=== PATIENT | male | born 1985 | race Caucasian/White ===

== ENCOUNTER 2018-07-24 16:04 | Inpatient (IN) | payer OTHER ==
[~2018-07-24] VITALS: Ht 170.2 cm; Wt 95.8 kg
[2018-07-24] MEDS ORDERED: POLYETHYLENE GLYCOL 17 GM PACKET PO PRN (19:30)
[2018-07-24] MEDS ORDERED: ONDANSETRON ODT 4 MG PO PRN (19:30)
[2018-07-24] MEDS ORDERED: ACETAMINOPHEN 325 MG TABLET PO PRN (19:30)
[2018-07-24] MEDS ORDERED: BISACODYL 10 MG SUPP PR PRN (19:30)
[2018-07-24] MEDS ORDERED: PLEASE ENTER ALLERGIES MC SCH (19:30)
[2018-07-24] MEDS: NICOTINE 21 MG/24 HR PATCH.TD24 TD SCH (19:30)
[2018-07-24 19:59] LABS: HCT (SEDRATE) 38.4 % (39.2-51.8)
[2018-07-24] MEDS: PLEASE ENTER HEIGHT AND WEIGHT MC SCH (20:00)
[2018-07-24 20:18] LABS: HIGH-SENSITIVITY CRP > 19.00 mg/dL (0.02-0.30)
[2018-07-24 20:24] LABS: MEAN CORPUSCULAR HGB CONC 34.1 g/dL (33.2-36.2); MEAN CORPUSCULAR VOLUME 87.8 fL (81-97); MEAN PLATELET VOLUME 7.4 fL (7.4-10.4); PLATELET COUNT 487 x10^3/uL (130-400); RED BLOOD COUNT 4.43 x10^6/uL (4.38-5.82); RED CELL DISTRIBUTION WIDTH 12.2 % (9.4-14.8)
[2018-07-24 20:40] LABS: BASOPHILS # (AUTO) 0.07 x10^3/uL (0-0.1); BASOPHILS % (AUTO) 0 % (0-1); EOSINOPHILS # (AUTO) 0.09 x10^3/uL (0-0.4); EOSINOPHILS % (AUTO) 1 % (1-7); LYMPHOCYTES # (AUTO) 2.72 x10^3/uL (1-3.4); LYMPHOCYTES % (AUTO) 17 % (22-44); MD SCAN; MONOCYTES % (AUTO) 9 % (2-9); NEUTROPHILS # (AUTO) 11.94 x10^3/uL (1.8-6.8); NEUTROPHILS % (AUTO) 73 % (42-75)
[2018-07-24] MEDS: OXYcodone/APAP 5/325MG TABLET PO PRN (20:46)
[2018-07-24] MEDS: KETOROLAC 30 MG/1 ML IVPush SCH (21:00)
[2018-07-24] MEDS: SODIUM CHLORIDE FLUSH 10ML SYR IVF SCH (21:04)
[2018-07-24] MEDS: HEPARIN 5,000 UNITS/ML, 1ML SQ SCH (22:03)
[2018-07-24 23:40] VITALS: BP 133/81
[2018-07-25] MEDS: KETOROLAC 30 MG/1 ML IVPush SCH ×4 (01:51→20:13)
[2018-07-25] MEDS: OXYcodone/APAP 5/325MG TABLET PO PRN ×5 (01:51→20:13)
[2018-07-25 03:53] VITALS: BP 129/73
[2018-07-25] MEDS: PLEASE ENTER HEIGHT AND WEIGHT MC SCH ×2 (04:00→12:00)
[2018-07-25 04:44] LABS: MEAN CORPUSCULAR HEMOGLOBIN 30.3 pg (27.5-34.5); MEAN CORPUSCULAR HGB CONC 34.5 g/dL (33.2-36.2); MEAN CORPUSCULAR VOLUME 87.7 fL (81-97); MEAN PLATELET VOLUME 7.2 fL (7.4-10.4); PLATELET COUNT 452 x10^3/uL (130-400); RED BLOOD COUNT 4.22 x10^6/uL (4.38-5.82); RED CELL DISTRIBUTION WIDTH 12.6 % (9.4-14.8)
[2018-07-25 04:55] LABS: ALANINE AMINOTRANSFERASE 19 U/L (12-78); ANION GAP 9 mmol/L (5-15); CALCIUM 9.5 mg/dL (8.5-10.1); CHLORIDE 98 mmol/L (98-107)
[2018-07-25 04:57] LABS: ALKALINE PHOSPHATASE 87 U/L (45-117); BILIRUBIN,TOTAL 0.7 mg/dL (0.2-1.0); TOTAL PROTEIN 8.5 g/dL (6.4-8.2)
[2018-07-25 05:06] LABS: BASOPHILS # (AUTO) 0.11 x10^3/uL (0-0.1); BASOPHILS % (AUTO) 1 % (0-1); EOSINOPHILS # (AUTO) 0.13 x10^3/uL (0-0.4); EOSINOPHILS % (AUTO) 1 % (1-7); LYMPHOCYTES # (AUTO) 3.34 x10^3/uL (1-3.4); LYMPHOCYTES % (AUTO) 19 % (22-44); MD SCAN; MONOCYTES # (AUTO) 1.85 x10^3/uL (0.2-0.8); MONOCYTES % (AUTO) 11 % (2-9); NEUTROPHILS # (AUTO) 11.86 x10^3/uL (1.8-6.8); NEUTROPHILS % (AUTO) 69 % (42-75)
[2018-07-25] MEDS: HEPARIN 5,000 UNITS/ML, 1ML SQ SCH ×3 (06:22→22:00)
[2018-07-25 07:27] VITALS: BP 123/78
[2018-07-25] MEDS ORDERED: LIDOCAINE-MPF 2%, 2ML ONE ×2 (08:18→11:41)
[2018-07-25] MEDS: SENNA/DOCUSATE TABLET PO SCH (10:16)
[2018-07-25] MEDS: COLCHICINE 0.6 MG TABLET PO SCH (10:17)
[2018-07-25] MEDS: SODIUM CHLORIDE FLUSH 10ML SYR IVF SCH ×2 (10:17→20:18)
[2018-07-25 13:13] VITALS: BP 129/80
[2018-07-25] MEDS ORDERED: ALUMINUM HYDROXIDE 64 MG/ML ORAL.SUSP PO PRN (15:30)
[2018-07-25] MEDS: ALUMINUM/MAG/SIMETHICONE 30 ML UDC PO PRN ×2 (17:22→21:48)
[2018-07-25] MEDS: NICOTINE 21 MG/24 HR PATCH.TD24 TD SCH (19:30)
[2018-07-25 20:46] VITALS: BP 147/73
[2018-07-26 00:17] VITALS: BP 116/77
[2018-07-26] MEDS: KETOROLAC 30 MG/1 ML IVPush SCH ×3 (02:06→13:40)
[2018-07-26] MEDS: OXYcodone/APAP 5/325MG TABLET PO PRN ×3 (05:50→14:52)
[2018-07-26] MEDS: HEPARIN 5,000 UNITS/ML, 1ML SQ SCH ×2 (06:00→14:00)
[2018-07-26 06:46] VITALS: BP 126/79
[2018-07-26] MEDS ORDERED: PANTOPROZOLE 40MG TABLET PO SCH (07:30)
[2018-07-26] MEDS: SODIUM CHLORIDE FLUSH 10ML SYR IVF SCH (08:29)
[2018-07-26] MEDS: COLCHICINE 0.6 MG TABLET PO SCH (08:34)
[2018-07-26] MEDS: SENNA/DOCUSATE TABLET PO SCH (08:34)
[2018-07-26] MEDS ORDERED: IBUP-1222 PO (10:13)
[2018-07-26] MEDS ORDERED: ALLO100T30 PO (10:13)
[2018-07-26] MEDS ORDERED: PRED5TAB PO (10:13)
[2018-07-26] MEDS ORDERED: OXYC1TAB7 PO (10:13)
[2018-07-26 12:32] VITALS: BP 146/74
[2018-07-26] MEDS ORDERED: methylPREDNISolone SOD SUCC 40 MG/ML IV SCH (14:00)
[2018-07-26 15:27] VITALS: BP 126/78
[2018-07-29 14:23] LABS: RAPID PLASMA REAGIN Nonreactive (Nonreactive)
[2018-07-29 14:57] LABS: ANA SCREEN POSITIVE (Negative); ANTI-NUCLEAR ANTIBODY PATTERN HOMOGENOUS
== END 2018-07-26 16:20 | disposition home or self-care (01) | DRG 565 ==
LOC: 4NOR 18:44
PROVIDERS: ADMIT Internal Medicine; ATTEND Family Medicine
PROC: 0S9C3ZZ Drainage of Right Knee Joint, Percutaneous Approach (ICD-10-PCS; principal; 2018-07-25)
DX: M25.461 Effusion, right knee (principal); E44.1 Mild protein-calorie malnutrition; E87.1 Hypo-osmolality and hyponatremia; M10.9 Gout, unspecified; M13.89 Other specified arthritis, multiple sites; I10 Essential (primary) hypertension; T38.0X5A Adverse effect of glucocorticoids and synthetic analogues, initial encounter; Z60.2 Problems related to living alone; D72.829 Elevated white blood cell count, unspecified
CPT/HCPCS: 20610; 20611; 36415; 76937; 80053; 80074; 84550; 85025; 85651; 85810; 86038; 86039; 86141; 86160; 86162; 86200; 86431; 86592; 87070; 87075; 87077; 87205; 87491; 87591; 87806; 89050; 89060; G0378; J1644; J1885; J3490; G0475; J2920; J7512

== ENCOUNTER 2018-07-28 18:53 | Inpatient (IN) | payer OTHER ==
[~2018-07-28] VITALS: Ht 170.2 cm; Wt 95.2 kg
[~2018-07-28 18:53] MED LIST: ALLO100T30 PO; IBUP-1222 PO; OXYC1TAB7 PO; PRED5TAB PO
[2018-07-28] MEDS ORDERED: SODIUM CHLORIDE FLUSH 10ML SYR IVF ONE (19:30)
[2018-07-28 19:36] LABS: MEAN CORPUSCULAR HEMOGLOBIN 30.2 pg (27.5-34.5); MEAN CORPUSCULAR HGB CONC 34.1 g/dL (33.2-36.2); MEAN CORPUSCULAR VOLUME 88.5 fL (81-97); MEAN PLATELET VOLUME 6.8 fL (7.4-10.4); PLATELET COUNT 650 x10^3/uL (130-400); RED BLOOD COUNT 4.51 x10^6/uL (4.38-5.82); RED CELL DISTRIBUTION WIDTH 12.7 % (9.4-14.8)
[2018-07-28 19:42] LABS: ALBUMIN 3.1 g/dL (3.4-5.0); ANION GAP 10 mmol/L (5-15); CALCIUM 9.5 mg/dL (8.5-10.1); CHLORIDE 101 mmol/L (98-107); CREATININE 0.72 mg/dL (0.7-1.3)
[2018-07-28] MEDS ORDERED: AZITHROMYCIN 500 MG TABLET ONE (19:49)
[2018-07-28] MEDS ORDERED: CEFTRIAXONE PMX 1GM/50ML 50 ML ONE (19:49)
[2018-07-28 19:59] LABS: MICROSCOPIC NOT IND
[2018-07-28 20:00] LABS: CULTURE INDICATED? NO
[2018-07-28] MEDS ORDERED: AZITHROMYCIN 250 MG TABLET PO ONE (20:00)
[2018-07-28] MEDS ORDERED: CEFTRIAXONE 1,000 MG in SODIUM CHLORIDE 0.9% 50 ML IVPB ONE (20:00)
[2018-07-28 20:03] LABS: MD YES
[2018-07-28 20:04] LABS: <RBC MORPHOLOGY> NORMAL; BANDS%(MANUAL) 1 % (0-7); LYMPH#(MANUAL) 7.08 x10^3/uL (1-3.4); LYMPHS% (MANUAL) 24 % (22-44); MONOS#(MANUAL) 2.07 x10^3/uL (0.3-2.7); MONOS% (MANUAL) 7 % (2-9); SEG#(MANUAL) 20.06 x10^3/uL (1.8-6.8); SEGS% (MANUAL) 68 % (42-75); TOXIC GRAN 1+
[2018-07-28 20:05] LABS: <PLATELET ESTIMATE> ADEQUATE; <PLT MORPHOLOGY> NORMAL PLT MORPH
[2018-07-28] MEDS ORDERED: morphine SULFATE 10 MG/ML, 1ML IVPush ONE (20:30)
[2018-07-28] MEDS ORDERED: MORPHINE SULFATE 4 MG/ML, 1ML ONE (20:48)
[2018-07-28] MEDS ORDERED: ONDANSETRON ODT 4 MG PO PRN (21:30)
[2018-07-28] MEDS ORDERED: hydrALAzine 20 MG/ML, 1ML IVPush PRN (21:30)
[2018-07-28 22:08] VITALS: BP 149/92
[2018-07-28] MEDS ORDERED: PREDNISONE MC SCH (22:30)
[2018-07-28] MEDS: KETOROLAC 30 MG/1 ML IV PRN (23:32)
[2018-07-29 02:12] VITALS: BP 130/74
[2018-07-29 06:51] VITALS: BP 147/96
[2018-07-29] MEDS ORDERED: CEFTRIAXONE 1,000 MG in SODIUM CHLORIDE 0.9% 50 ML IV SCH (08:00)
[2018-07-29] MEDS: ENOXAPARIN 40 MG/0.4 ML SQ SCH (08:40)
[2018-07-29] MEDS: ALLOPURINOL 100 MG TABLET PO SCH (08:40)
[2018-07-29] MEDS: SENNA/DOCUSATE TABLET PO SCH (08:40)
[2018-07-29] MEDS: NICOTINE 14MG/24 HR PATCH.TD24 TD SCH (08:40)
[2018-07-29] MEDS: KETOROLAC 30 MG/1 ML IV PRN ×3 (08:43→21:19)
[2018-07-29 08:49] LABS: MD YES; MEAN CORPUSCULAR HEMOGLOBIN 29.6 pg (27.5-34.5); MEAN CORPUSCULAR HGB CONC 33.4 g/dL (33.2-36.2); MEAN CORPUSCULAR VOLUME 88.7 fL (81-97); MEAN PLATELET VOLUME 6.8 fL (7.4-10.4); PLATELET COUNT 592 x10^3/uL (130-400); RED BLOOD COUNT 4.15 x10^6/uL (4.38-5.82); RED CELL DISTRIBUTION WIDTH 12.2 % (9.4-14.8)
[2018-07-29 08:50] LABS: HCT (SEDRATE) 36.8 % (39.2-51.8)
[2018-07-29 08:55] LABS: ANION GAP 8 mmol/L (5-15); CALCIUM 9.3 mg/dL (8.5-10.1); CHLORIDE 101 mmol/L (98-107)
[2018-07-29 09:05] LABS: CREATININE 0.61 mg/dL (0.7-1.3)
[2018-07-29] MEDS: CEFTRIAXONE PMX 1GM/50ML 50 ML IV SCH ×2 (09:17→21:19)
[2018-07-29] MEDS: OXYcodone IR 5MG TABLET PO PRN ×4 (09:17→22:33)
[2018-07-29 09:31] LABS: BAND#(MANUAL) 0.71 x10^3/uL; BANDS%(MANUAL) 3 % (0-7); LYMPH#(MANUAL) 5.17 x10^3/uL (1-3.4); LYMPHS% (MANUAL) 22 % (22-44); METAMYELOCYTES# (MANUAL) 0.47 x10^3/uL (0-0); METAMYELOCYTES% (MANUAL) 2 % (0-1); MONOS#(MANUAL) 1.41 x10^3/uL (0.3-2.7); MONOS% (MANUAL) 6 % (2-9); SEG#(MANUAL) 15.75 x10^3/uL (1.8-6.8); SEGS% (MANUAL) 67 % (42-75)
[2018-07-29 09:32] LABS: <PLATELET ESTIMATE> INCREASED; <PLT MORPHOLOGY> NORMAL PLT MORPH; <RBC MORPHOLOGY> NORMAL
[2018-07-29 13:34] VITALS: BP 135/78
[2018-07-29 19:55] VITALS: BP 128/77
[2018-07-30 03:45] VITALS: BP 146/88
[2018-07-30 07:34] VITALS: BP 147/74
[2018-07-30] MEDS: SENNA/DOCUSATE TABLET PO SCH (08:20)
[2018-07-30] MEDS: OXYcodone IR 5MG TABLET PO PRN ×3 (08:20→20:15)
[2018-07-30] MEDS: NICOTINE 14MG/24 HR PATCH.TD24 TD SCH (08:21)
[2018-07-30] MEDS: ALLOPURINOL 100 MG TABLET PO SCH (08:21)
[2018-07-30] MEDS: ENOXAPARIN 40 MG/0.4 ML SQ SCH (08:21)
[2018-07-30] MEDS: CEFTRIAXONE PMX 1GM/50ML 50 ML IV SCH ×2 (10:09→22:06)
[2018-07-30 13:27] LABS: MEAN CORPUSCULAR HEMOGLOBIN 28.7 pg (27.5-34.5); MEAN PLATELET VOLUME 6.5 fL (7.4-10.4); PLATELET COUNT 670 x10^3/uL (130-400); RED BLOOD COUNT 4.54 x10^6/uL (4.38-5.82); RED CELL DISTRIBUTION WIDTH 12.6 % (9.4-14.8)
[2018-07-30 13:39] LABS: ANION GAP 10 mmol/L (5-15); CALCIUM 9.1 mg/dL (8.5-10.1); CHLORIDE 101 mmol/L (98-107); CREATININE 0.72 mg/dL (0.7-1.3)
[2018-07-30 14:03] LABS: BASOPHILS # (AUTO) 0.26 x10^3/uL (0-0.1); BASOPHILS % (AUTO) 1 % (0-1); EOSINOPHILS # (AUTO) 0.02 x10^3/uL (0-0.4); EOSINOPHILS % (AUTO) 0 % (1-7); LYMPHOCYTES # (AUTO) 2.37 x10^3/uL (1-3.4); LYMPHOCYTES % (AUTO) 9 % (22-44); MD SCAN; MONOCYTES # (AUTO) 0.35 x10^3/uL (0.2-0.8); MONOCYTES % (AUTO) 1 % (2-9); NEUTROPHILS # (AUTO) 22.38 x10^3/uL (1.8-6.8); NEUTROPHILS % (AUTO) 88 % (42-75)
[2018-07-30 15:21] VITALS: BP 146/84
[2018-07-30 19:00] VITALS: BP 150/96
[2018-07-30] MEDS: KETOROLAC 30 MG/1 ML IV PRN (22:06)
[2018-07-31 01:26] VITALS: BP 142/74
[2018-07-31 07:21] VITALS: BP 143/82
[2018-07-31] MEDS: OXYcodone IR 5MG TABLET PO PRN ×3 (07:52→20:47)
[2018-07-31 08:46] LABS: MEAN CORPUSCULAR HEMOGLOBIN 29.7 pg (27.5-34.5); MEAN CORPUSCULAR HGB CONC 33.8 g/dL (33.2-36.2); MEAN CORPUSCULAR VOLUME 87.7 fL (81-97); MEAN PLATELET VOLUME 6.4 fL (7.4-10.4); PLATELET COUNT 688 x10^3/uL (130-400); RED BLOOD COUNT 4.41 x10^6/uL (4.38-5.82); RED CELL DISTRIBUTION WIDTH 12.2 % (9.4-14.8)
[2018-07-31 08:57] LABS: ANION GAP 7 mmol/L (5-15); CALCIUM 9.3 mg/dL (8.5-10.1); CHLORIDE 100 mmol/L (98-107); CREATININE 0.73 mg/dL (0.7-1.3)
[2018-07-31] MEDS: NICOTINE 14MG/24 HR PATCH.TD24 TD SCH (09:10)
[2018-07-31] MEDS: ENOXAPARIN 40 MG/0.4 ML SQ SCH (09:10)
[2018-07-31] MEDS: SENNA/DOCUSATE TABLET PO SCH (09:10)
[2018-07-31] MEDS: ALLOPURINOL 100 MG TABLET PO SCH (09:10)
[2018-07-31 09:25] LABS: MD YES
[2018-07-31 09:26] LABS: BAND#(MANUAL) 0.57 x10^3/uL; BANDS%(MANUAL) 2 % (0-7); SEG#(MANUAL) 20.66 x10^3/uL (1.8-6.8); SEGS% (MANUAL) 73 % (42-75)
[2018-07-31 09:27] LABS: <PLATELET ESTIMATE> INCREASED; <PLT MORPHOLOGY> NORMAL PLT MORPH; <RBC MORPHOLOGY> NORMAL; BASOS#(MANUAL) 0.28 x10^3/uL (0-0.1); BASOS% (MANUAL) 1 % (0-1); LYMPH#(MANUAL) 6.23 x10^3/uL (1-3.4); LYMPHS% (MANUAL) 22 % (22-44); MONOS#(MANUAL) 0.57 x10^3/uL (0.3-2.7); MONOS% (MANUAL) 2 % (2-9)
[2018-07-31] MEDS: CEFTRIAXONE PMX 1GM/50ML 50 ML IV SCH (10:18)
[2018-07-31] MEDS ORDERED: GADOBUTROL 10 MMOL/10 ML PFS ONE (11:53)
[2018-07-31] MEDS ORDERED: CEFTRIAXONE 1 GM in SODIUM CHLORIDE 0.9% 50 ML IV SCH (14:00)
[2018-07-31] MEDS ORDERED: CEFTRIAXONE PMX 1GM/50ML 50 ML IV ONE (14:00)
[2018-07-31 14:30] VITALS: BP 120/73
[2018-07-31 19:13] VITALS: BP 138/78
[2018-07-31] MEDS: KETOROLAC 30 MG/1 ML IV PRN (22:21)
[2018-08-01 00:30] VITALS: BP 151/70
[2018-08-01 07:24] VITALS: BP 155/77
[2018-08-01] MEDS ORDERED: CEFTRIAXONE 2 GM in SODIUM CHLORIDE 0.9% 50 ML IV SCH (08:00)
[2018-08-01] MEDS: ALLOPURINOL 100 MG TABLET PO SCH (09:00)
[2018-08-01] MEDS: NICOTINE 14MG/24 HR PATCH.TD24 TD SCH (09:00)
[2018-08-01] MEDS: ENOXAPARIN 40 MG/0.4 ML SQ SCH (09:00)
[2018-08-01] MEDS: SENNA/DOCUSATE TABLET PO SCH (09:00)
[2018-08-01] MEDS ORDERED: FAMO-79 PO (09:37)
[2018-08-01] MEDS: CEFTRIAXONE PMX 2GM/50ML 50 ML IV SCH (10:13)
[2018-08-01] MEDS: OXYcodone IR 5MG TABLET PO PRN ×2 (10:13→18:25)
[2018-08-01 14:03] VITALS: BP 135/77
[2018-08-01 14:26] LABS: MEAN CORPUSCULAR HEMOGLOBIN 30.1 pg (27.5-34.5); MEAN CORPUSCULAR HGB CONC 34.3 g/dL (33.2-36.2); MEAN PLATELET VOLUME 6.7 fL (7.4-10.4); PLATELET COUNT 655 x10^3/uL (130-400); RED BLOOD COUNT 4.45 x10^6/uL (4.38-5.82); RED CELL DISTRIBUTION WIDTH 12.7 % (9.4-14.8)
[2018-08-01 15:09] LABS: MD YES
[2018-08-01 15:11] LABS: <PLATELET ESTIMATE> INCREASED; <PLT MORPHOLOGY> NORMAL PLT MORPH; <RBC MORPHOLOGY> NORMAL; BAND#(MANUAL) 0.27 x10^3/uL; BANDS%(MANUAL) 1 % (0-7); LYMPH#(MANUAL) 2.72 x10^3/uL (1-3.4); LYMPHS% (MANUAL) 10 % (22-44); MONOS#(MANUAL) 0.82 x10^3/uL (0.3-2.7); MONOS% (MANUAL) 3 % (2-9); MYELOCYTES# (MANUAL) 0.27 x10^3/uL (0-0); MYELOCYTES% (MANUAL) 1 % (0-0); SEG#(MANUAL) 23.12 x10^3/uL (1.8-6.8); SEGS% (MANUAL) 85 % (42-75)
[2018-08-01 19:29] VITALS: BP 131/88
[2018-08-01] MEDS: FAMOTIDINE 20 MG TABLET PO SCH (20:03)
[2018-08-01] MEDS: TEMAZEPAM 15 MG CAPSULE PO PRN (22:57)
[2018-08-01] MEDS: KETOROLAC 30 MG/1 ML IV PRN (22:57)
[2018-08-02 03:20] VITALS: BP 127/78
[2018-08-02 05:10] LABS: MEAN CORPUSCULAR HEMOGLOBIN 29.9 pg (27.5-34.5); MEAN CORPUSCULAR HGB CONC 34.4 g/dL (33.2-36.2); MEAN PLATELET VOLUME 6.5 fL (7.4-10.4); PLATELET COUNT 580 x10^3/uL (130-400); RED BLOOD COUNT 4.28 x10^6/uL (4.38-5.82); RED CELL DISTRIBUTION WIDTH 12.4 % (9.4-14.8)
[2018-08-02 05:24] LABS: ALBUMIN 2.9 g/dL (3.4-5.0); ANION GAP 7 mmol/L (5-15); CALCIUM 9.3 mg/dL (8.5-10.1); CHLORIDE 102 mmol/L (98-107)
[2018-08-02 05:25] LABS: CREATININE 0.75 mg/dL (0.7-1.3)
[2018-08-02 06:08] LABS: BASOPHILS # (AUTO) 0.11 x10^3/uL (0-0.1); BASOPHILS % (AUTO) 0 % (0-1); EOSINOPHILS % (AUTO) 1 % (1-7); LYMPHOCYTES # (AUTO) 5.29 x10^3/uL (1-3.4); LYMPHOCYTES % (AUTO) 21 % (22-44); MD SCAN; MONOCYTES # (AUTO) 1.37 x10^3/uL (0.2-0.8); MONOCYTES % (AUTO) 5 % (2-9); NEUTROPHILS # (AUTO) 18.39 x10^3/uL (1.8-6.8); NEUTROPHILS % (AUTO) 73 % (42-75)
[2018-08-02 08:03] VITALS: BP 129/79
[2018-08-02] MEDS: SENNA/DOCUSATE TABLET PO SCH (09:00)
[2018-08-02] MEDS: NICOTINE 14MG/24 HR PATCH.TD24 TD SCH (09:00)
[2018-08-02] MEDS: ENOXAPARIN 40 MG/0.4 ML SQ SCH (09:00)
[2018-08-02] MEDS: ALLOPURINOL 100 MG TABLET PO SCH (09:00)
[2018-08-02] MEDS: FAMOTIDINE 20 MG TABLET PO SCH ×2 (09:27→19:51)
[2018-08-02] MEDS: CEFTRIAXONE PMX 2GM/50ML 50 ML IV SCH (09:27)
[2018-08-02] MEDS: OXYcodone IR 5MG TABLET PO PRN ×2 (09:27→14:55)
[2018-08-02 14:30] VITALS: BP 124/75
[2018-08-02] MEDS: KETOROLAC 30 MG/1 ML IV PRN (19:03)
[2018-08-02 20:02] VITALS: BP 135/80
[2018-08-03 04:16] VITALS: BP 127/75
[2018-08-03 05:10] LABS: MEAN CORPUSCULAR HEMOGLOBIN 29.8 pg (27.5-34.5); MEAN CORPUSCULAR HGB CONC 34.5 g/dL (33.2-36.2); MEAN CORPUSCULAR VOLUME 86.3 fL (81-97); MEAN PLATELET VOLUME 6.6 fL (7.4-10.4); PLATELET COUNT 499 x10^3/uL (130-400); RED CELL DISTRIBUTION WIDTH 12.6 % (9.4-14.8)
[2018-08-03 05:25] LABS: ALBUMIN 2.8 g/dL (3.4-5.0); ANION GAP 8 mmol/L (5-15); CALCIUM 8.6 mg/dL (8.5-10.1); CHLORIDE 102 mmol/L (98-107); CREATININE 0.78 mg/dL (0.7-1.3)
[2018-08-03 05:47] LABS: BASOPHILS # (AUTO) 0.07 x10^3/uL (0-0.1); BASOPHILS % (AUTO) 0 % (0-1); EOSINOPHILS # (AUTO) 0.14 x10^3/uL (0-0.4); EOSINOPHILS % (AUTO) 1 % (1-7); LYMPHOCYTES % (AUTO) 15 % (22-44); MD SCAN; MONOCYTES # (AUTO) 1.39 x10^3/uL (0.2-0.8); MONOCYTES % (AUTO) 7 % (2-9); NEUTROPHILS # (AUTO) 15.67 x10^3/uL (1.8-6.8); NEUTROPHILS % (AUTO) 77 % (42-75)
[2018-08-03 07:15] VITALS: BP 127/73
[2018-08-03] MEDS: ENOXAPARIN 40 MG/0.4 ML SQ SCH (09:00)
[2018-08-03] MEDS: NICOTINE 14MG/24 HR PATCH.TD24 TD SCH (09:00)
[2018-08-03] MEDS: SENNA/DOCUSATE TABLET PO SCH (09:00)
[2018-08-03] MEDS: FAMOTIDINE 20 MG TABLET PO SCH ×2 (09:57→19:42)
[2018-08-03] MEDS: CEFTRIAXONE PMX 2GM/50ML 50 ML IV SCH (09:58)
[2018-08-03 14:00] VITALS: BP 136/79
[2018-08-03] MEDS ORDERED: KETOROLAC 30 MG/1 ML IVPush SCH (15:30)
[2018-08-03] MEDS: TEMAZEPAM 15 MG CAPSULE PO PRN (19:53)
[2018-08-03 20:24] VITALS: BP 128/79
[2018-08-04 01:32] VITALS: BP 127/77
[2018-08-04 06:05] LABS: BASOPHILS # (AUTO) 0.03 x10^3/uL (0-0.1); BASOPHILS % (AUTO) 0 % (0-1); EOSINOPHILS # (AUTO) 0.08 x10^3/uL (0-0.4); EOSINOPHILS % (AUTO) 1 % (1-7); LYMPHOCYTES # (AUTO) 3.44 x10^3/uL (1-3.4); LYMPHOCYTES % (AUTO) 20 % (22-44); MD NO; MEAN CORPUSCULAR HEMOGLOBIN 29.7 pg (27.5-34.5); MEAN CORPUSCULAR HGB CONC 33.9 g/dL (33.2-36.2); MEAN CORPUSCULAR VOLUME 87.6 fL (81-97); MEAN PLATELET VOLUME 6.6 fL (7.4-10.4); MONOCYTES # (AUTO) 1.09 x10^3/uL (0.2-0.8); MONOCYTES % (AUTO) 6 % (2-9); NEUTROPHILS # (AUTO) 12.91 x10^3/uL (1.8-6.8); NEUTROPHILS % (AUTO) 74 % (42-75); PLATELET COUNT 467 x10^3/uL (130-400); RED BLOOD COUNT 4.08 x10^6/uL (4.38-5.82); RED CELL DISTRIBUTION WIDTH 12.4 % (9.4-14.8)
[2018-08-04 06:13] LABS: ALBUMIN 2.8 g/dL (3.4-5.0); ANION GAP 7 mmol/L (5-15); CALCIUM 8.5 mg/dL (8.5-10.1); CHLORIDE 101 mmol/L (98-107)
[2018-08-04 06:24] LABS: ALANINE AMINOTRANSFERASE 35 U/L (12-78); ALKALINE PHOSPHATASE 77 U/L (45-117); BILIRUBIN,TOTAL 0.4 mg/dL (0.2-1.0); CREATININE 0.65 mg/dL (0.7-1.3); TOTAL PROTEIN 7.5 g/dL (6.4-8.2)
[2018-08-04 06:31] LABS: HCT (SEDRATE) 35.8 % (39.2-51.8)
[2018-08-04 07:07] VITALS: BP 135/81
[2018-08-04] MEDS: SENNA/DOCUSATE TABLET PO SCH (09:00)
[2018-08-04] MEDS: NICOTINE 14MG/24 HR PATCH.TD24 TD SCH (09:00)
[2018-08-04] MEDS: ENOXAPARIN 40 MG/0.4 ML SQ SCH (09:00)
[2018-08-04] MEDS: IBUPROFEN 800 MG TABLET PO PRN (09:37)
[2018-08-04] MEDS: FAMOTIDINE 20 MG TABLET PO SCH ×2 (09:38→21:12)
[2018-08-04] MEDS: CEFTRIAXONE PMX 2GM/50ML 50 ML IV SCH (09:40)
[2018-08-04] MEDS: LIDODERM 5% PATCH TD SCH (12:50)
[2018-08-04 13:02] VITALS: BP 131/79
[2018-08-04 20:38] VITALS: BP 147/84
[2018-08-04] MEDS: TEMAZEPAM 15 MG CAPSULE PO PRN (21:12)
[2018-08-05 00:56] VITALS: BP 126/74
[2018-08-05 05:35] LABS: MEAN CORPUSCULAR HEMOGLOBIN 29.9 pg (27.5-34.5); MEAN CORPUSCULAR HGB CONC 33.7 g/dL (33.2-36.2); MEAN CORPUSCULAR VOLUME 88.6 fL (81-97); MEAN PLATELET VOLUME 6.6 fL (7.4-10.4); PLATELET COUNT 517 x10^3/uL (130-400); RED BLOOD COUNT 4.26 x10^6/uL (4.38-5.82)
[2018-08-05 05:49] LABS: ANION GAP 8 mmol/L (5-15); CALCIUM 9.3 mg/dL (8.5-10.1); CHLORIDE 100 mmol/L (98-107)
[2018-08-05 05:52] LABS: CREATININE 0.68 mg/dL (0.7-1.3)
[2018-08-05 06:05] LABS: MD YES
[2018-08-05 06:06] LABS: <RBC MORPHOLOGY> NORMAL; BAND#(MANUAL) 0.19 x10^3/uL; BANDS%(MANUAL) 1 % (0-7); EOS#(MANUAL) 0.37 x10^3/uL (0.0-0.4); EOS% (MANUAL) 2 % (1-7); LYMPHS% (MANUAL) 20 % (22-44); METAMYELOCYTES# (MANUAL) 0.19 x10^3/uL (0-0); METAMYELOCYTES% (MANUAL) 1 % (0-1); MONOS#(MANUAL) 0.74 x10^3/uL (0.3-2.7); MONOS% (MANUAL) 4 % (2-9); MYELOCYTES# (MANUAL) 0.19 x10^3/uL (0-0); MYELOCYTES% (MANUAL) 1 % (0-0); SEG#(MANUAL) 13.14 x10^3/uL (1.8-6.8); SEGS% (MANUAL) 71 % (42-75)
[2018-08-05 06:07] LABS: <PLATELET ESTIMATE> INCREASED; <PLT MORPHOLOGY> NORMAL PLT MORPH
[2018-08-05] MEDS: SENNA/DOCUSATE TABLET PO SCH (07:08)
[2018-08-05] MEDS: NICOTINE 14MG/24 HR PATCH.TD24 TD SCH (07:08)
[2018-08-05 07:10] VITALS: BP 120/79
[2018-08-05] MEDS: FAMOTIDINE 20 MG TABLET PO SCH ×2 (08:33→19:36)
[2018-08-05] MEDS: CEFTRIAXONE PMX 2GM/50ML 50 ML IV SCH (08:33)
[2018-08-05] MEDS: ENOXAPARIN 40 MG/0.4 ML SQ SCH ×2 (08:33→08:44)
[2018-08-05] MEDS: IBUPROFEN 800 MG TABLET PO PRN (08:33)
[2018-08-05] MEDS: LIDODERM 5% PATCH TD SCH (13:34)
[2018-08-05 13:56] VITALS: BP 131/69
[2018-08-05 19:47] VITALS: BP 124/79
[2018-08-05] MEDS: TEMAZEPAM 15 MG CAPSULE PO PRN (21:16)
[2018-08-06 02:55] VITALS: BP 118/80
[2018-08-06 05:38] LABS: BASOPHILS # (AUTO) 0.06 x10^3/uL (0-0.1); BASOPHILS % (AUTO) 0 % (0-1); EOSINOPHILS % (AUTO) 1 % (1-7); LYMPHOCYTES % (AUTO) 21 % (22-44); MD NO; MEAN CORPUSCULAR HEMOGLOBIN 29.9 pg (27.5-34.5); MEAN CORPUSCULAR VOLUME 87.8 fL (81-97); MEAN PLATELET VOLUME 6.8 fL (7.4-10.4); MONOCYTES # (AUTO) 1.43 x10^3/uL (0.2-0.8); MONOCYTES % (AUTO) 8 % (2-9); NEUTROPHILS # (AUTO) 12.31 x10^3/uL (1.8-6.8); NEUTROPHILS % (AUTO) 70 % (42-75); PLATELET COUNT 546 x10^3/uL (130-400); RED BLOOD COUNT 4.05 x10^6/uL (4.38-5.82); RED CELL DISTRIBUTION WIDTH 12.7 % (9.4-14.8)
[2018-08-06 05:52] LABS: CHLORIDE 101 mmol/L (98-107)
[2018-08-06 05:55] LABS: ANION GAP 7 mmol/L (5-15); CALCIUM 9.3 mg/dL (8.5-10.1); CREATININE 0.63 mg/dL (0.7-1.3)
[2018-08-06 07:20] VITALS: BP 120/86
[2018-08-06] MEDS: ENOXAPARIN 40 MG/0.4 ML SQ SCH (09:00)
[2018-08-06] MEDS: NICOTINE 14MG/24 HR PATCH.TD24 TD SCH (09:00)
[2018-08-06] MEDS: SENNA/DOCUSATE TABLET PO SCH (09:00)
[2018-08-06] MEDS: FAMOTIDINE 20 MG TABLET PO SCH ×2 (09:48→20:00)
[2018-08-06] MEDS: IBUPROFEN 800 MG TABLET PO PRN (09:49)
[2018-08-06] MEDS: CEFTRIAXONE PMX 2GM/50ML 50 ML IV SCH (09:50)
[2018-08-06 13:27] VITALS: BP 131/76
[2018-08-06] MEDS: LIDODERM 5% PATCH TD SCH (15:20)
[2018-08-06 18:58] VITALS: BP 124/77
[2018-08-06] MEDS: TEMAZEPAM 15 MG CAPSULE PO PRN (21:23)
[2018-08-07 01:40] VITALS: BP 147/82
[2018-08-07 07:19] VITALS: BP 143/75
[2018-08-07 07:52] LABS: BASOPHILS # (AUTO) 0.08 x10^3/uL (0-0.1); BASOPHILS % (AUTO) 1 % (0-1); EOSINOPHILS # (AUTO) 0.08 x10^3/uL (0-0.4); EOSINOPHILS % (AUTO) 1 % (1-7); LYMPHOCYTES # (AUTO) 3.48 x10^3/uL (1-3.4); LYMPHOCYTES % (AUTO) 22 % (22-44); MD NO; MEAN CORPUSCULAR HEMOGLOBIN 29.1 pg (27.5-34.5); MEAN CORPUSCULAR HGB CONC 33.5 g/dL (33.2-36.2); MEAN PLATELET VOLUME 6.6 fL (7.4-10.4); MONOCYTES # (AUTO) 1.12 x10^3/uL (0.2-0.8); MONOCYTES % (AUTO) 7 % (2-9); NEUTROPHILS # (AUTO) 11.11 x10^3/uL (1.8-6.8); NEUTROPHILS % (AUTO) 70 % (42-75); PLATELET COUNT 616 x10^3/uL (130-400); RED BLOOD COUNT 4.32 x10^6/uL (4.38-5.82); RED CELL DISTRIBUTION WIDTH 12.9 % (9.4-14.8)
[2018-08-07 07:58] LABS: ANION GAP 8 mmol/L (5-15); CALCIUM 9.7 mg/dL (8.5-10.1); CHLORIDE 100 mmol/L (98-107); CREATININE 0.69 mg/dL (0.7-1.3)
[2018-08-07] MEDS: ENOXAPARIN 40 MG/0.4 ML SQ SCH (09:00)
[2018-08-07] MEDS: SENNA/DOCUSATE TABLET PO SCH (09:00)
[2018-08-07] MEDS: NICOTINE 14MG/24 HR PATCH.TD24 TD SCH (09:00)
[2018-08-07] MEDS ORDERED: GADOBUTROL 10 MMOL/10 ML PFS ONE (10:15)
[2018-08-07] MEDS: FAMOTIDINE 20 MG TABLET PO SCH ×2 (11:06→19:58)
[2018-08-07] MEDS: CEFTRIAXONE PMX 2GM/50ML 50 ML IV SCH (11:06)
[2018-08-07] MEDS: LIDODERM 5% PATCH TD SCH (12:30)
[2018-08-07 14:00] VITALS: BP 143/75
[2018-08-07 17:47] VITALS: BP 143/75
[2018-08-07 18:33] VITALS: BP 130/80
[2018-08-07] MEDS: TEMAZEPAM 15 MG CAPSULE PO PRN (19:58)
[2018-08-08 00:43] VITALS: BP 123/71
[2018-08-08 05:55] LABS: MEAN CORPUSCULAR HEMOGLOBIN 29.9 pg (27.5-34.5); MEAN CORPUSCULAR HGB CONC 34.1 g/dL (33.2-36.2); MEAN CORPUSCULAR VOLUME 87.8 fL (81-97); MEAN PLATELET VOLUME 6.6 fL (7.4-10.4); PLATELET COUNT 591 x10^3/uL (130-400); RED BLOOD COUNT 3.99 x10^6/uL (4.38-5.82)
[2018-08-08 06:05] LABS: ANION GAP 9 mmol/L (5-15); CALCIUM 8.8 mg/dL (8.5-10.1); CHLORIDE 103 mmol/L (98-107); CREATININE 0.69 mg/dL (0.7-1.3)
[2018-08-08 06:16] LABS: BASOPHILS # (AUTO) 0.11 x10^3/uL (0-0.1); BASOPHILS % (AUTO) 1 % (0-1); EOSINOPHILS # (AUTO) 0.13 x10^3/uL (0-0.4); EOSINOPHILS % (AUTO) 1 % (1-7); LYMPHOCYTES # (AUTO) 3.52 x10^3/uL (1-3.4); LYMPHOCYTES % (AUTO) 20 % (22-44); MD SCAN; MONOCYTES # (AUTO) 1.47 x10^3/uL (0.2-0.8); MONOCYTES % (AUTO) 8 % (2-9); NEUTROPHILS # (AUTO) 12.31 x10^3/uL (1.8-6.8); NEUTROPHILS % (AUTO) 70 % (42-75)
[2018-08-08 07:09] VITALS: BP 127/73
[2018-08-08] MEDS: SENNA/DOCUSATE TABLET PO SCH (09:00)
[2018-08-08] MEDS: NICOTINE 14MG/24 HR PATCH.TD24 TD SCH (09:00)
[2018-08-08] MEDS: ENOXAPARIN 40 MG/0.4 ML SQ SCH (09:00)
[2018-08-08] MEDS: CEFTRIAXONE PMX 2GM/50ML 50 ML IV SCH (10:48)
[2018-08-08] MEDS: IBUPROFEN 800 MG TABLET PO PRN ×2 (10:53→20:05)
[2018-08-08] MEDS: FAMOTIDINE 20 MG TABLET PO SCH ×2 (11:11→20:05)
[2018-08-08] MEDS ORDERED: morphine SULFATE 10 MG/ML, 1ML ONE (13:58)
[2018-08-08 14:00] VITALS: BP 126/72
[2018-08-08] MEDS ORDERED: morphine SULFATE 10 MG/ML, 1ML IVPush ONE (14:00)
[2018-08-08] MEDS ORDERED: LIDOCAINE-MPF 1%, 5ML ONE (15:17)
[2018-08-08] MEDS: LIDODERM 5% PATCH TD SCH (18:10)
[2018-08-08 19:08] VITALS: BP 123/71
[2018-08-08] MEDS: TEMAZEPAM 15 MG CAPSULE PO PRN (20:05)
[2018-08-09 02:19] VITALS: BP 142/73
[2018-08-09 05:37] LABS: CHLORIDE 103 mmol/L (98-107)
[2018-08-09 05:45] LABS: ANION GAP 7 mmol/L (5-15); BASOPHILS # (AUTO) 0.05 x10^3/uL (0-0.1); BASOPHILS % (AUTO) 0 % (0-1); CALCIUM 8.8 mg/dL (8.5-10.1); CREATININE 0.66 mg/dL (0.7-1.3); EOSINOPHILS # (AUTO) 0.14 x10^3/uL (0-0.4); EOSINOPHILS % (AUTO) 1 % (1-7); LYMPHOCYTES # (AUTO) 3.91 x10^3/uL (1-3.4); LYMPHOCYTES % (AUTO) 26 % (22-44); MD NO; MEAN CORPUSCULAR HEMOGLOBIN 29.6 pg (27.5-34.5); MEAN CORPUSCULAR HGB CONC 33.6 g/dL (33.2-36.2); MEAN CORPUSCULAR VOLUME 88.1 fL (81-97); MEAN PLATELET VOLUME 6.8 fL (7.4-10.4); MONOCYTES # (AUTO) 1.12 x10^3/uL (0.2-0.8); MONOCYTES % (AUTO) 7 % (2-9); NEUTROPHILS # (AUTO) 10.12 x10^3/uL (1.8-6.8); NEUTROPHILS % (AUTO) 66 % (42-75); PLATELET COUNT 579 x10^3/uL (130-400); RED BLOOD COUNT 3.92 x10^6/uL (4.38-5.82); RED CELL DISTRIBUTION WIDTH 12.7 % (9.4-14.8)
[2018-08-09 08:00] VITALS: BP 122/67
[2018-08-09] MEDS: FAMOTIDINE 20 MG TABLET PO SCH ×2 (08:31→22:42)
[2018-08-09] MEDS: NICOTINE 14MG/24 HR PATCH.TD24 TD SCH (08:32)
[2018-08-09] MEDS: ENOXAPARIN 40 MG/0.4 ML SQ SCH (08:32)
[2018-08-09] MEDS: SENNA/DOCUSATE TABLET PO SCH (08:32)
[2018-08-09] MEDS: CEFTRIAXONE PMX 2GM/50ML 50 ML IV SCH (11:20)
[2018-08-09 14:00] VITALS: BP 122/67
[2018-08-09 19:41] VITALS: BP 146/77
[2018-08-09] MEDS: IBUPROFEN 800 MG TABLET PO PRN (22:42)
[2018-08-09] MEDS: TEMAZEPAM 15 MG CAPSULE PO PRN (22:42)
[2018-08-09] MEDS: LIDODERM 5% PATCH TD SCH (22:42)
[2018-08-10 00:20] VITALS: BP 133/79
[2018-08-10 05:23] LABS: HCT (SEDRATE) 34.8 % (39.2-51.8)
[2018-08-10 05:26] LABS: BASOPHILS % (AUTO) 1 % (0-1); EOSINOPHILS # (AUTO) 0.13 x10^3/uL (0-0.4); EOSINOPHILS % (AUTO) 1 % (1-7); LYMPHOCYTES # (AUTO) 4.16 x10^3/uL (1-3.4); LYMPHOCYTES % (AUTO) 29 % (22-44); MD NO; MEAN CORPUSCULAR HEMOGLOBIN 29.6 pg (27.5-34.5); MEAN CORPUSCULAR HGB CONC 33.7 g/dL (33.2-36.2); MEAN CORPUSCULAR VOLUME 87.9 fL (81-97); MEAN PLATELET VOLUME 6.6 fL (7.4-10.4); MONOCYTES # (AUTO) 1.06 x10^3/uL (0.2-0.8); MONOCYTES % (AUTO) 7 % (2-9); NEUTROPHILS # (AUTO) 9.05 x10^3/uL (1.8-6.8); NEUTROPHILS % (AUTO) 62 % (42-75); PLATELET COUNT 595 x10^3/uL (130-400); RED BLOOD COUNT 3.96 x10^6/uL (4.38-5.82); RED CELL DISTRIBUTION WIDTH 12.9 % (9.4-14.8)
[2018-08-10 05:37] LABS: CHLORIDE 106 mmol/L (98-107)
[2018-08-10 05:50] LABS: ALANINE AMINOTRANSFERASE 56 U/L (12-78); ALBUMIN 2.9 g/dL (3.4-5.0); ALKALINE PHOSPHATASE 77 U/L (45-117); ANION GAP 7 mmol/L (5-15); BILIRUBIN,TOTAL 0.2 mg/dL (0.2-1.0); CALCIUM 9.4 mg/dL (8.5-10.1); CREATININE 0.66 mg/dL (0.7-1.3); TOTAL PROTEIN 7.9 g/dL (6.4-8.2)
[2018-08-10 07:34] VITALS: BP 117/62
[2018-08-10] MEDS: NICOTINE 14MG/24 HR PATCH.TD24 TD SCH (08:12)
[2018-08-10] MEDS: SENNA/DOCUSATE TABLET PO SCH (08:12)
[2018-08-10] MEDS: FAMOTIDINE 20 MG TABLET PO SCH (08:12)
[2018-08-10] MEDS: ENOXAPARIN 40 MG/0.4 ML SQ SCH (08:12)
[2018-08-10] MEDS: CEFTRIAXONE PMX 2GM/50ML 50 ML IV SCH (10:30)
[2018-08-14 13:53] LABS: ANA SCREEN NEGATIVE (Negative)
== END 2018-08-10 13:00 | disposition home or self-care (01) | DRG 549 ==
LOC: ED 20:00 → EDIP 21:24 → 3NE 21:45
PROVIDERS: ADMIT Hospitalist; ATTEND Hospitalist
PROC: 0S9C3ZX Drainage of Right Knee Joint, Percutaneous Approach, Diagnostic (ICD-10-PCS; principal; 2018-08-08)
DX: A54.42 Gonococcal arthritis (principal); E44.0 Moderate protein-calorie malnutrition; A54.89 Other gonococcal infections; M25.461 Effusion, right knee; F10.20 Alcohol dependence, uncomplicated; F17.200 Nicotine dependence, unspecified, uncomplicated; I10 Essential (primary) hypertension; M71.21 Synovial cyst of popliteal space [Baker], right knee; M19.072 Primary osteoarthritis, left ankle and foot; M25.462 Effusion, left knee; M11.261 Other chondrocalcinosis, right knee; D72.828 Other elevated white blood cell count; F06.4 Anxiety disorder due to known physiological condition; I11.9 Hypertensive heart disease without heart failure; K21.9 Gastro-esophageal reflux disease without esophagitis; M10.9 Gout, unspecified; M19.032 Primary osteoarthritis, left wrist; Z79.2 Long term (current) use of antibiotics; Z60.2 Problems related to living alone
CPT/HCPCS: 20611; 36415; 71045; 80048; 80053; 81003; 82040; 83516; 83605; 85025; 85651; 86038; 86140; 86160; 86225; 86235; 86255; 86256; 86376; 86431; 87040; 87070; 87205; 96374; 96375; A9585; G0378; J0696; J1650; J1885; J2270; J7512

== ENCOUNTER → 2020-03-16 | Outpatient (CLI) | payer OTHER ==
[~2020-03-16] MED LIST changes: +FAMO-79 PO
== END | disposition home or self-care (01) ==
LOC: RAD 09:53
PROVIDERS: ATTEND Internal Medicine Gastroenterology
DX: K44.9 Diaphragmatic hernia without obstruction or gangrene (principal); R11.2 Nausea with vomiting, unspecified; R12 Heartburn; R13.19 Other dysphagia
CPT/HCPCS: 78264; A9541

== ENCOUNTER 2020-11-28 15:10 | Emergency (ER) | payer OTHER ==
[~2020-11-28] VITALS: Ht 167.6 cm; Wt 91.0 kg
--- NOTE | 2020-11-28 15:24 | NUR ---
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
[2020-11-28] MEDS ORDERED: LIDOCAINE-MPF 1%, 5ML INFIL ONE (17:30)
--- NOTE | 2020-11-28 19:27 | NUR ---
PT CARE ENDORSED TO PRISCILLA VILLALBA.
--- NOTE | 2020-11-28 19:28 | NUR ---
TASK RN: RECEIVED REPORT FROM PRISCILLA ROJAS TO ASSUME CARE OF PT. AT THIS TIME.
[2020-11-28] MEDS ORDERED: LIDOCAINE-MPF 1%, 5ML ONE (19:37)
--- NOTE | 2020-11-28 20:02 | NUR ---
KENYA VIVAS COMPLETED I&D AT BS.
[2020-11-28 20:26] VITALS: BP 129/78
== END 2020-11-28 20:25 ==
LOC: ED 19:24
DX: L02.411 Cutaneous abscess of right axilla (principal); R07.89 Other chest pain; R94.31 Abnormal electrocardiogram [ECG] [EKG]; K21.9 Gastro-esophageal reflux disease without esophagitis; M10.9 Gout, unspecified
CPT/HCPCS: 10060; 93005; 99283